=== PATIENT | male | born 1995 | race Caucasian/White ===

== ENCOUNTER 2017-08-12 18:23 | Emergency (ER) | payer OTHER, BC ==
[2017-08-12] MEDS ORDERED: Bupivacaine 0.25% 30 ML SDV INFILT ONE (18:50)
[2017-08-12] MEDS ORDERED: Diphtheria,Pertussis(Acell),Tetanus Vaccine 0.5 ML SDV IM ONE (19:23)
--- NOTE | 2017-08-12 19:32 | EDM.PDOC ---
ED HPI GENERAL MEDICAL PROBLEM - General Stated Complaint: LEFT ARM CUT Time Seen by Provider: 08/12/17 18:23 Source of Information: Reports: Patient, Family, Other (employer) History Limitations: Reports: No Limitations - History of Present Illness INITIAL COMMENTS - FREE TEXT/NARRATIVE: 126/85 22 y.o.w.f came to the ed after he injured his left arm at work on an object. No N/V/D or any other acute medical issue: BP 126/85 RR 18/ Pulse 110 Pulse ox 100% on RA Onset: Today Onset Date: 08/12/17 Onset Time: 11:00 Duration: Hour(s): Location: Reports: Upper Extremity, Left Quality: Reports: Ache Severity: Mild Improves with: Reports: Rest Worsens with: Reports: Movement - Related Data Allergies Allergy/AdvReac Type Severity Reaction Status Date / Time No Known Allergies Allergy Verified 08/12/17 19:38 Home Meds: Home Meds Cephalexin [Keflex] 500 mg PO Q8H #30 cap 08/12/17 [Rx] NK [No Known Home Meds] 08/12/17 [History] Review of Systems - Review of Systems Review Of Systems: See Below Constitutional: Reports: No Symptoms Eyes: Reports: No Symptoms Ears: Reports: No Symptoms Nose: Reports: No Symptoms Mouth/Throat: Reports: No Symptoms Respiratory: Reports: No Symptoms Cardiovascular: Reports: No Symptoms GI/Abdominal: Reports: No Symptoms Genitourinary: Reports: No Symptoms Musculoskeletal: Reports: No Symptoms Skin: Reports: No Symptoms Neurological: Reports: No Symptoms Psychiatric: Reports: No Symptoms ED EXAM, GENERAL - Physical Exam Exam: See Below Exam Limited By: No Limitations General Appearance: Alert, WD/WN, No Apparent Distress Eye Exam: Bilateral Eye: Normal Inspection Ears: Normal External Exam Ear Exam: Bilateral Ear: Auricle Normal Nose: Normal Inspection, Normal Mucosa, No Blood Throat/Mouth: Normal Inspection, Normal Lips, Normal Teeth, Normal Gums Head: Atraumatic, Normocephalic Neck: Normal Inspection, Supple, Non-Tender Respiratory/Chest: No Respiratory Distress, Lungs Clear, Normal Breath Sounds, No Accessory Muscle Use Cardiovascular: Normal Peripheral Pulses, Regular Rate, Rhythm, No Edema Peripheral Pulses: 1+: Brachial (R) GI/Abdominal: Normal Bowel Sounds, Soft, Non-Tender, No Organomegaly, No Distention, No Abnormal Bruit, No Mass, Pelvis Stable (Male) Exam: Deferred Rectal (Males) Exam: Deferred Back Exam: Normal Inspection, Full Range of Motion Extremities: Normal Range of Motion, Non-Tender, No Pedal Edema, Normal Capillary Refill, Other (Lac left forarm) Neurological: Alert, Oriented, CN II-XII Intact, Normal Cognition, Normal Gait Psychiatric: Normal Affect, Normal Mood Skin Exam: Warm, Dry, Other (LAC left mid forarm) Lymphatic: No Adenopathy ED TRAUMA EXTREMITY PROCEDURES - Laceration/Wound Repair Left Arm Appearance: Superficial, Linear Distal NVT: Neuro & Vascular Intact, No Tendon Injury Anesthetic Type: Local Local Anesthesia - Bupivicaine (Marcaine): 0.5% Plain Local Anesthetic Volume: 2cc Skin Prep: Chlorhexidine (Hibiciens), Providone-Iodine (Betadine) Saline Irrigation (cc's): 5 Exploration/Debridement/Repair: Wound Explored, In a Bloodless Field, Explored to Base Closed With: Sutures Suture Size: 4-0 # of Sutures: 3 Suture Type: Other (ethilon) Tetanus Status Addressed: Other (received on etoday) Complications: No Course - Vital Signs Text/Narrative:: 22 y.o.w.f came to the ed after he injured his left arm at work on an object. No N/V/D or any other acute medical issue: BP 126/85 RR 18/ Pulse 110 Pulse ox 100% on RA PE: Lac left forearm Procedure: Please se note above Impression: LAC left LAC, repaired in the ED Tx: Wound repair. Abx, TD Reexam: Improved Plan: D/C with instructions - Orders/Labs/Meds Orders: Active Orders 24 hr Category Date Time Status Vaccines to be Administered [RC] PER UNIT ROUTINE Care 08/12/17 19:23 Active Meds: Medications Discontinued Medications Generic Name Dose Route Start Last Admin Trade Name Freq PRN Reason Stop Dose Admin Diphtheria/Tetanus/Acell Pertussis 0.5 ml 08/12/17 19:23 Adacel IM 08/12/17 19:24 .ONCE ONE Departure - Departure Time of Disposition: 19:37 Disposition: Home, Self-Care 01 Condition: Good Clinical Impression: Laceration - Discharge Information Prescriptions: Cephalexin [Keflex] 500 mg PO Q8H #30 cap Referrals: Adiel Lewis MD [Primary Care Provider] - Additional Instructions: Please apply Neosporine to wound twice daily, please take the Abs as recommended , please f/u with wound Check in 2 days, suture removal in 10 days, come back to the ed if your symptoms get worse acutely - My Orders Last 24 Hours: My Active Orders 08/12/17 19:23 Vaccines to be Administered [RC] PER UNIT ROUTINE - Assessment/Plan Last 24 Hours: My Active Orders 08/12/17 19:23 Vaccines to be Administered [RC] PER UNIT ROUTINE
[2017-08-12] MEDS ORDERED: Cephalexin 500 MG Cap PO STA (19:42)
[2017-08-12] MEDS ORDERED: Cephalexin 500 MG Cap ONE (19:43)
== END 2017-08-12 19:50 | disposition home or self-care (01) ==
LOC: FB.ED 18:23
DX: S51.812A Laceration without foreign body of left forearm, initial encounter (principal); Z23 Encounter for immunization; W22.8XXA Striking against or struck by other objects, initial encounter; Y99.0 Civilian activity done for income or pay
CPT/HCPCS: 12001; 90471; 90715; 96372; 99000; 99282; A9270; J3490